=== PATIENT | male | born 1975 | race Caucasian/White ===

== ENCOUNTER 2016-06-12 00:36 | Emergency (ER) | payer OTHER ==
[~2016-06-12] VITALS: Ht 160 cm; Wt 83.0 kg
[2016-06-12 00:42] VITALS: Ht 160 cm; Wt 83.0 kg
--- NOTE | 2016-06-12 01:09 | ERD ---
ER Documentation Chief Complaint Date/Time DATE: 06/12/16 TIME: 01:07 Chief Complaint lower abd pain today HPI 40-year-old homeless male presenting with left lower quadrant pain. He states that he was diagnosed with a hernia and is following up today. There is been no changes in his pain. He states when he stands up the hernia comes out when he lays down goes back in. He has been eating normally. No nausea, vomiting, diarrhea, constipation. No fevers or chills. No testicular pain. He has not seen a primary care doctor yet for this reason. He only goes to ERs. ROS All systems reviewed and are negative except as per history of present illness. Allergies Allergies: Coded Allergies: No Known Allergy (Unverified , 06/12/16) PMhx/Soc History of Surgery: No Anesthesia Reaction: No Hx Neurological Disorder: No Hx Respiratory Disorders: No Hx Cardiac Disorders: No Hx Psychiatric Problems: No Hx Miscellaneous Medical Probl: Yes (HERNIA) Hx Alcohol Use: Yes Hx Substance Use: No Hx Tobacco Use: No Smoking Status: Former smoker FmHx Family History: No diabetes Physical Exam Vitals Vital Signs Date Time Temp Pulse Resp B/P Pulse Ox O2 Delivery O2 Flow Rate FiO2 06/12/16 01:02 06/12/16 00:42 97.7 60 20 132/67 100 Physical Exam Const: Well-appearing, no distress, dirty clothing Head: Atraumatic Eyes: Normal Conjunctiva ENT: Normal External Ears, Nose and Mouth. Neck: Full range of motion..~ No meningismus. Resp: Clear to auscultation bilaterally Cardio: Regular rate and rhythm, no murmurs Abd: Soft, non tender, non distended. Normal bowel sounds. No palpable hernia. Skin: No petechiae or rashes Back: No midline or flank tenderness Ext: No cyanosis, or edema Neur: Awake and alert Psych: Normal Mood and Affect Procedures/MDM Patient is presenting with a reducible left inguinal hernia. There is no evidence of incarceration on my exam. He has no signs of an acute abdomen. He is hemodynamically stable and afebrile. I believe the patient is stable for discharge at this time. I referred him to community clinics. I explained to him that he needs to see a primary care doctor to get a referral to a surgeon to get his hernia repaired. Return precautions were discussed. Patient was discharged in stable condition. Departure Diagnosis: Primary Impression: Reducible left inguinal hernia Condition: Stable Patient Instructions: Hernia (Inguinal, Ventral, Umbilical) Referrals: [facility] YOU HAVE RECEIVED A MEDICAL SCREENING EXAM AND THE RESULTS INDICATE THAT YOU DO NOT HAVE A CONDITION THAT REQUIRES URGENT TREATMENT IN THE EMERGENCY DEPARTMENT. FURTHER EVALUATION AND TREATMENT OF YOUR CONDITION CAN WAIT UNTIL YOU ARE SEEN IN YOUR DOCTORS OFFICE WITHIN THE NEXT 1-2 DAYS. IT IS YOUR RESPONSIBILITY TO MAKE AN APPOINTMENT FOR FOLOW-UP CARE. IF YOU HAVE A PRIMARY DOCTOR --you should call your primary doctor and schedule an appointment IF YOU DO NOT HAVE A PRIMARY DOCTOR YOU CAN CALL OUR PHYSICIAN REFERRAL HOTLINE AT IF YOU CAN NOT AFFORD TO SEE A PHYSICIAN YOU CAN CHOSE FROM THE FOLLOWING [facility] [address] [facility]. [facility] [address] [facility] [place] [address] [facility] [address] [facility] [facility] [address] [facility]. [facility]. [address] [place] Jun 12, 2016 01:09
== END 2016-06-12 01:15 | disposition home or self-care (01) ==
LOC: E/R 00:36
DX: K40.90 Unilateral inguinal hernia, without obstruction or gangrene, not specified as recurrent (principal); Z87.891 Personal history of nicotine dependence
CPT/HCPCS: 99282

== ENCOUNTER 2017-10-16 09:02 | Day surgery (SDC) | END 2017-10-16 15:00 | disposition home or self-care (01) ==